=== PATIENT | male | born 1995 | race African-American/Black ===

== ENCOUNTER 2017-06-04 18:04 | Emergency (ER) | payer SELFPAY ==
[~2017-06-04] VITALS: Ht 170.2 cm; Wt 70.0 kg
[~2017-06-04 18:04] MED LIST: CEPHALEXIN500 MG PO; MEDDOSEPAK PO; MOTRIN400 MG/TAB PO; MOTRIN800 MG PO; MUPIROCIN2 % EX; NAPROSYN500 MG PO; NO HOME MEDS
[2017-06-04 18:32] LABS: HEMATOCRIT 45.2 % (39.0-50.0); HEMOGLOBIN 15.3 g/dl (14.0-18.0); IMMATURE GRANULOCYTES 0.2 % (0.0-1.0); MEAN CELL VOLUME 81.9 fL CALC (80.0-100.0); MEAN CORPUSCULAR HGB 27.7 pG CALC (26.0-32.0); MEAN CORPUSCULAR HGB CONC 33.8 g/L CALC (32.0-36.0); NEUT# 6.45 thou/uL (1.82-7.42); RED BLOOD COUNT 5.52 mill/uL (4.70-6.10); RED CELL DISTRI WIDTH 11.7 % (11.5-15.5)
[2017-06-04 18:47] LABS: ALBUMIN 4.9 g/dL (3.2-5.0); ALKALINE PHOSPHATASE 77 u/l (38-126); ANION GAP 16 (6-22 (CALC)); BILIRUBIN, TOTAL 0.6 mg/dL (0.0-1.4); BUN 12 mg/dL (9-20); BUN/CREATININE RATIO 8 (12-20 (CALC)); CALCIUM 10.3 mg/dL (8.4-10.2); CARBON DIOXIDE 29 mmol/l (22-30); CHLORIDE 102 mmol/l (95-108); CREATININE 1.5 mg/dL (0.7-1.3); GFR 60 ML/MIN (>=60 (CALC)); GFR FOR AFR.AMER. > 60 ML/MIN (>=60 (CALC)); GLUCOSE 60 mg/dL (75-110); POTASSIUM 3.9 mmol/l (3.5-5.1); SGOT/AST 31 u/l (17-59); SGPT/ALT 31 u/l (21-72); SODIUM 142 mmol/l (137-146); TOTAL PROTEIN 8.4 g/dL (6.3-8.2)
[2017-06-04 18:59] LABS: MYOGLOBIN 203 ng/mL (0 - 121)
[2017-06-04 19:17] LABS: URINE BILIRUBIN - DIPSTICK NEGATIVE (NEGATIVE); URINE BLOOD DIPSTICK NEGATIVE (NEGATIVE); URINE CLARITY CLOUDY; URINE COLOR YELLOW; URINE GLUCOSE - DIPSTICK NEGATIVE (NEGATIVE); URINE KETONE NEGATIVE (NEGATIVE); URINE LEUK ESTERASE NEGATIVE (NEGATIVE); URINE NITRITE - DIPSTICK NEGATIVE (Negative); URINE PROTEIN - DIPSTICK NEGATIVE (NEG-TRACE); URINE SPECIFIC GRAVITY 1.025; URINE UROBILINOGEN - DIPSTICK 0.2 E.U./dL (0.2)
[2017-06-04 19:22] LABS: BARBITURATES NEGATIVE (NEGATIVE); COCAINE NEGATIVE (NEGATIVE); METHADONE NEGATIVE (NEGATIVE); OXCYCODONE NEGATIVE (NEGATIVE); TETRAHYDROCANNABIONOL NEGATIVE (NEGATIVE); TRICYLIC ANTIDEPRESSANTS NEGATIVE (NEGATIVE)
[2017-06-04 21:07] LABS: ANION GAP 14 (6-22 (CALC)); BUN 11 mg/dL (9-20); BUN/CREATININE RATIO 9 (12-20 (CALC)); CALCIUM 9.3 mg/dL (8.4-10.2); CARBON DIOXIDE 26 mmol/l (22-30); CHLORIDE 104 mmol/l (95-108); CREATININE 1.3 mg/dL (0.7-1.3); GFR > 60 ML/MIN (>=60 (CALC)); GFR FOR AFR.AMER. > 60 ML/MIN (>=60 (CALC)); GLUCOSE 77 mg/dL (75-110); POTASSIUM 3.9 mmol/l (3.5-5.1); SODIUM 140 mmol/l (137-146)
[2017-06-04 21:55] VITALS: BP 115/69
== END 2017-06-04 21:55 | disposition home or self-care (01) | DRG 313 ==
LOC: ED 18:04
PROVIDERS: Emergency Medicine
DX: R07.89 Other chest pain (principal); R94.31 Abnormal electrocardiogram [ECG] [EKG]; Y93.67 Activity, basketball; Y92.9 Unspecified place or not applicable

== ENCOUNTER 2017-08-10 08:34 | Emergency (ER) | payer SELFPAY ==
[~2017-08-10] VITALS: Ht 170.2 cm; Wt 70.0 kg
[2017-08-10 09:59] LABS: URINE BILIRUBIN - DIPSTICK NEGATIVE (NEGATIVE); URINE BLOOD DIPSTICK NEGATIVE (NEGATIVE); URINE CLARITY CLEAR; URINE COLOR YELLOW; URINE GLUCOSE - DIPSTICK NEGATIVE (NEGATIVE); URINE KETONE NEGATIVE (NEGATIVE); URINE LEUK ESTERASE NEGATIVE (NEGATIVE); URINE NITRITE - DIPSTICK NEGATIVE (Negative); URINE PH 5.5 (4.5-8.0); URINE PROTEIN - DIPSTICK NEGATIVE (NEG-TRACE); URINE SPECIFIC GRAVITY 1.015; URINE UROBILINOGEN - DIPSTICK 0.2 E.U./dL (0.2)
[2017-08-10 10:05] LABS: HEMATOCRIT 46.4 % (39.0-50.0); HEMOGLOBIN 15.8 g/dl (14.0-18.0); IMMATURE GRANULOCYTES 0.4 % (0.0-1.0); MEAN CELL VOLUME 82.4 fL CALC (80.0-100.0); MEAN CORPUSCULAR HGB 28.1 pG CALC (26.0-32.0); MEAN CORPUSCULAR HGB CONC 34.1 g/L CALC (32.0-36.0); NEUT# 3.33 thou/uL (1.82-7.42); RED BLOOD COUNT 5.63 mill/uL (4.70-6.10)
[2017-08-10 10:13] LABS: ALBUMIN 4.3 g/dL (3.2-5.0); ALKALINE PHOSPHATASE 60 u/l (38-126); AMYLASE 54 u/l (30-110); ANION GAP 15 (6-22 (CALC)); BILIRUBIN, TOTAL 1.2 mg/dL (0.0-1.4); BUN 7 mg/dL (9-20); BUN/CREATININE RATIO 5 (12-20 (CALC)); CALCIUM 9.5 mg/dL (8.4-10.2); CARBON DIOXIDE 30 mmol/l (22-30); CHLORIDE 99 mmol/l (95-108); CREATININE 1.2 mg/dL (0.7-1.3); GFR > 60 ML/MIN (>=60 (CALC)); GFR FOR AFR.AMER. > 60 ML/MIN (>=60 (CALC)); GLUCOSE 91 mg/dL (75-110); LIPASE 29 u/l (23-300); POTASSIUM 3.6 mmol/l (3.5-5.1); SGOT/AST 22 u/l (17-59); SGPT/ALT 29 u/l (21-72); SODIUM 139 mmol/l (137-146); TOTAL PROTEIN 7.7 g/dL (6.3-8.2)
[2017-08-10 12:45] VITALS: BP 105/56
== END 2017-08-10 12:52 | disposition home or self-care (01) | DRG 392 ==
LOC: ED 08:34
PROVIDERS: Emergency Medicine
DX: R10.84 Generalized abdominal pain (principal)
CPT/HCPCS: Q9967

== ENCOUNTER 2017-10-02 03:47 | Emergency (ER) | payer SELFPAY ==
[~2017-10-02] VITALS: Ht 170.2 cm; Wt 72.7 kg
[2017-10-02 04:15] LABS: HEMOGLOBIN 16.4 g/dl (14.0-18.0); IMMATURE GRANULOCYTES 0.1 % (0.0-1.0); MEAN CELL VOLUME 82.8 fL CALC (80.0-100.0); MEAN CORPUSCULAR HGB 27.7 pG CALC (26.0-32.0); MEAN CORPUSCULAR HGB CONC 33.5 g/L CALC (32.0-36.0); NEUT# 3.46 thou/uL (1.82-7.42); RED BLOOD COUNT 5.92 mill/uL (4.70-6.10); RED CELL DISTRI WIDTH 11.9 % (11.5-15.5)
[2017-10-02 04:20] LABS: ALBUMIN 5.2 g/dL (3.2-5.0); ALKALINE PHOSPHATASE 81 u/l (38-126); ANION GAP 18 (6-22 (CALC)); BILIRUBIN, TOTAL 0.8 mg/dL (0.0-1.4); BUN 12 mg/dL (9-20); BUN/CREATININE RATIO 8 (12-20 (CALC)); CALCIUM 10.3 mg/dL (8.4-10.2); CARBON DIOXIDE 28 mmol/l (22-30); CHLORIDE 103 mmol/l (95-108); CREATININE 1.4 mg/dL (0.7-1.3); GFR > 60 ML/MIN (>=60 (CALC)); GFR FOR AFR.AMER. > 60 ML/MIN (>=60 (CALC)); GLUCOSE 98 mg/dL (75-110); POTASSIUM 3.6 mmol/l (3.5-5.1); SGOT/AST 37 u/l (17-59); SGPT/ALT 35 u/l (21-72); SODIUM 146 mmol/l (137-146); TOTAL PROTEIN 9.3 g/dL (6.3-8.2)
[2017-10-02 04:32] LABS: MYOGLOBIN 100 ng/mL (0 - 121)
[2017-10-02 04:40] LABS: URINE BILIRUBIN - DIPSTICK NEGATIVE (NEGATIVE); URINE BLOOD DIPSTICK NEGATIVE (NEGATIVE); URINE COLOR YELLOW; URINE GLUCOSE - DIPSTICK NEGATIVE (NEGATIVE); URINE KETONE NEGATIVE (NEGATIVE); URINE LEUK ESTERASE NEGATIVE (NEGATIVE); URINE NITRITE - DIPSTICK NEGATIVE (Negative); URINE PROTEIN - DIPSTICK NEGATIVE (NEG-TRACE); URINE SPECIFIC GRAVITY 1.025; URINE UROBILINOGEN - DIPSTICK 0.2 E.U./dL (0.2)
[2017-10-02 04:41] LABS: URINE CLARITY SL CLOUDY
[2017-10-02 04:45] LABS: BARBITURATES NEGATIVE (NEGATIVE); COCAINE NEGATIVE (NEGATIVE); METHADONE NEGATIVE (NEGATIVE); OXCYCODONE NEGATIVE (NEGATIVE); TETRAHYDROCANNABIONOL NEGATIVE (NEGATIVE); TRICYLIC ANTIDEPRESSANTS NEGATIVE (NEGATIVE)
[2017-10-02] MEDS ORDERED: AMOXICILLIN500 MG PO (05:02)
[2017-10-02] MEDS ORDERED: ROBITUSSIN AC10 ML PO (05:02)
[2017-10-02 05:32] VITALS: BP 133/72
== END 2017-10-02 05:32 | disposition home or self-care (01) | DRG 313 ==
LOC: ED 03:47
PROVIDERS: Emergency Medicine
DX: R07.89 Other chest pain (principal); J02.9 Acute pharyngitis, unspecified; R94.31 Abnormal electrocardiogram [ECG] [EKG]

== ENCOUNTER 2022-01-07 14:17 | Emergency (ER) | payer SELFPAY ==
[~2022-01-07 14:17] MED LIST changes: +AMOXICILLIN500 MG PO; +ROBITUSSIN AC10 ML PO
[2022-01-08] MEDS ORDERED: AMOX/K CLAV875 M1 PO (14:18)
== END 2022-01-07 14:53 | disposition left against medical advice (07) | DRG 951 ==
LOC: ED 14:17 → LWOBS 14:52
DX: Z53.21 Procedure and treatment not carried out due to patient leaving prior to being seen by health care provider (principal)

== ENCOUNTER 2022-01-08 11:33 | Emergency (ER) | payer OTHER ==
[~2022-01-08] VITALS: Ht 170.2 cm; Wt 73.6 kg
[2022-01-08] MEDS ORDERED: AMOX/K CLAV875 M1 PO (14:18)
[2022-01-08 14:30] VITALS: BP 123/65
== END 2022-01-08 14:32 | disposition home or self-care (01) | DRG 156 ==
LOC: ED 11:33
PROC: 3E1B78Z Irrigation of Ear using Irrigating Substance, Via Natural or Artificial Opening (ICD-10-PCS; principal; 2022-01-08)
DX: H61.22 Impacted cerumen, left ear (principal); K08.89 Other specified disorders of teeth and supporting structures

== ENCOUNTER 2022-03-21 12:10 | Emergency (ER) | payer OTHER ==
[2022-03-21] VITALS (7 sets, daily range): BP systolic 106–125; BP diastolic 70–84
[~2022-03-21] VITALS: Ht 170.2 cm; Wt 73.6 kg
[~2022-03-21 12:10] MED LIST changes: +AMOX/K CLAV875 M1 PO
[2022-03-21] MEDS ORDERED: METHOCARBAMOL500 MG PO (14:22)
[2022-03-21] MEDS ORDERED: NAPROXEN500 MG PO (14:22)
== END 2022-03-21 14:50 | disposition home or self-care (01) | DRG 552 ==
LOC: ED 12:10
DX: M54.50 Low back pain, unspecified (principal); X50.0XXA Overexertion from strenuous movement or load, initial encounter; Y92.89 Other specified places as the place of occurrence of the external cause; Y99.0 Civilian activity done for income or pay

== ENCOUNTER 2023-04-27 19:21 | Emergency (ER) | payer OTHER ==
[~2023-04-27] VITALS: Ht 170.2 cm; Wt 72.0 kg
[~2023-04-27 19:21] MED LIST changes: +METHOCARBAMOL500 MG PO; +NAPROXEN500 MG PO
[2023-04-27] MEDS ORDERED: NAPROXEN500 MG PO (20:54)
[2023-04-27 20:56] VITALS: BP 130/86
== END 2023-04-27 21:04 | disposition home or self-care (01) | DRG 563 ==
LOC: ED 19:21
DX: S93.401A Sprain of unspecified ligament of right ankle, initial encounter (principal); X50.0XXA Overexertion from strenuous movement or load, initial encounter; Y93.B9 Activity, other involving muscle strengthening exercises; Y92.39 Other specified sports and athletic area as the place of occurrence of the external cause

== ENCOUNTER 2023-12-21 11:19 | Emergency (ER) | payer OTHER ==
[~2023-12-21] VITALS: Ht 170.2 cm; Wt 72.6 kg
[2023-12-21 13:23] VITALS: BP 112/64
[2023-12-21 13:31] VITALS: BP 111/72
[2023-12-21] MEDS ORDERED: TAM75CAP PO (13:34)
[2023-12-21 13:45] VITALS: BP 123/75
== END 2023-12-21 13:40 | disposition home or self-care (01) | DRG 195 ==
LOC: ED 11:19
DX: J10.1 Influenza due to other identified influenza virus with other respiratory manifestations (principal); Z20.822 Contact with and (suspected) exposure to COVID-19

== ENCOUNTER 2024-11-15 18:18 | Emergency (ER) | payer SELFPAY ==
[~2024-11-15] VITALS: Ht 170.2 cm; Wt 80.0 kg
[~2024-11-15 18:18] MED LIST changes: +TAM75CAP PO
[2024-11-15 19:18] LABS: BASO% 0.4 % (0-3); EOS% 2.8 % (0-8); HEMATOCRIT 47.6 % (39.0-50.0); HEMOGLOBIN 16.2 g/dl (14.0-18.0); IMMATURE GRANULOCYTES 0.2 % (0.0-5.0); LYMPH% 41.1 % (15-41); MEAN CELL VOLUME 80.8 fL CALC (80.0-100.0); MEAN CORPUSCULAR HGB 27.5 pG CALC (26.0-32.0); MONO% 10.8 % (2-13); NEUT# 2.52 thou/uL (1.82-7.42); NEUT% 44.7 % (42-76); RED BLOOD COUNT 5.89 mill/uL (4.70-6.10); RED CELL DISTRI WIDTH 11.6 % (11.5-15.5)
[2024-11-15] MEDS ORDERED: SODIUM CHLORIDE 0.9% 1,000 ML IV ONE (19:25)
[2024-11-15 19:27] LABS: ALBUMIN 4.6 g/dL (3.2-5.0); BILIRUBIN, TOTAL 0.8 mg/dL (0.2-1.3); CREATININE 1.3 mg/dL (0.7-1.3); TOTAL PROTEIN 8.2 g/dL (6.3-8.2)
[2024-11-15 19:30] VITALS: BP 110/74
[2024-11-15 19:56] VITALS: BP 109/68
[2024-11-15 20:00] VITALS: BP 121/79
[2024-11-15 20:12] LABS: ACT PARTIAL THROMBO TIME 27.5 SECONDS (20.0-32.5); INTERNATIONAL NORMALIZED RATIO 1.1 RATIO (0.7-1.3)
[2024-11-15 20:13] LABS: PROTHROMBIN TIME 11.3 SECONDS (9.0-12.5)
[2024-11-15] MEDS ORDERED: ASPIRIN LOW81 M1 PO (21:01)
[2024-11-15] MEDS ORDERED: ATORVASTATIN CA80 MG PO (21:01)
[2024-11-15] MEDS ORDERED: PRASUGREL10 MG (21:01)
[2024-11-15] MEDS ORDERED: LOPRESSOR 550 MG/TAB PO (21:02)
[2024-11-15 21:14] VITALS: BP 122/79
[2024-11-15 21:35] LABS: URINE BILIRUBIN - DIPSTICK Negative (NEGATIVE); URINE BLOOD DIPSTICK Negative (NEGATIVE); URINE GLUCOSE - DIPSTICK Negative (NEGATIVE); URINE KETONE Negative (NEGATIVE); URINE LEUK ESTERASE Negative (NEGATIVE); URINE NITRITE - DIPSTICK Negative (Negative); URINE PH 6.5 (4.5-8.0); URINE PROTEIN - DIPSTICK Negative (NEG-TRACE); URINE SPECIFIC GRAVITY 1.015; URINE UROBILINOGEN - DIPSTICK 0.2 E.U./dL (0.2)
[2024-11-15 21:36] LABS: URINE COLOR Yellow
[2024-11-15 21:51] VITALS: BP 122/79
== END 2024-11-15 21:51 | disposition home or self-care (01) | DRG 282 ==
LOC: ED 18:18 → ED-I 21:13 → ED 21:51
PROVIDERS: Family Medicine; Nurse Practitioner
DX: I95.9 Hypotension, unspecified (principal); I21.3 ST elevation (STEMI) myocardial infarction of unspecified site; I25.10 Atherosclerotic heart disease of native coronary artery without angina pectoris; Z95.5 Presence of coronary angioplasty implant and graft